=== PATIENT | female | born 1975 | race Caucasian/White ===

== ENCOUNTER → 2017-09-21 11:08 | Outpatient (CLI) | payer OTHER, SELFPAY | PROVIDERS: Family Provider Nurse Practitioner; PCP Nurse Practitioner; Visit Provider Nurse Practitioner | DX: R00.2 Palpitations (principal) | CPT/HCPCS: 93225; 93226 ==

== ENCOUNTER → 2018-03-15 11:31 | Outpatient (CLI) | payer OTHER, SELFPAY ==
--- NOTE | 2018-03-15 11:34 | BI_ITS ---
MAMMOGRAPHY - BILATERAL SCREENING REASON FOR EXAM: Female, 42 years old. Routine annual screening examination. PERTINENT HISTORY: Mother with breast cancer. Occasional clear discharge from the left breast. Occasional right axillary tenderness. TECHNIQUE: Digital bilateral breast swathi (3D mammographic acquisition) in the CC and MLO projections. 2-D mediolateral oblique (MLO) and craniocaudad (CC) views of both breasts were obtained. CAD: Full Field Digital Mammography with Computer Added Detection was performed. COMPARISON: Comparison is made with prior study dated January 25, 2017 and May 03, 2014. FINDINGS: Breast Composition: The breasts are heterogeneously dense, which may obscure small masses. There are no dominant masses or suspicious calcifications. No other significant abnormalities are identified. There has been no significant change since the prior study. BI/SCREENING MAMM (CAD), BILAT IMPRESSION: Stable bilateral screening mammogram. Yearly follow-up mammogram recommended. (A) ASSESSMENT CATEGORY: BIRADS Category 1: Negative. A letter regarding these results will be sent to the patient by the facility within 30 days. Approximately 10% of breast cancers are not detected by mammography. A normal mammogram should not delay biopsy of a clinically suspicious abnormality. [id number] Electronically Signed: Gareth Gan MD at 13:21 EST Tel [phone], Service support ,
== END ==
PROVIDERS: Family Provider Nurse Practitioner; PCP Nurse Practitioner; Referring Provider Nurse Practitioner; Visit Provider Nurse Practitioner
DX: Z12.31 Encounter for screening mammogram for malignant neoplasm of breast (principal); Z80.3 Family history of malignant neoplasm of breast
CPT/HCPCS: 77063; 77067

== ENCOUNTER → 2018-10-05 | Outpatient (CLI) | payer SELFPAY ==
--- NOTE | 2018-10-05 14:28 | RAD_ITS ---
STUDY: X-RAY CHEST REASON FOR EXAM: Female, 43 years old. Chest pain. TECHNIQUE: Frontal and lateral views of the chest. COMPARISON: None. FINDINGS: The lungs are clear and expanded. There is no demonstrated pleural abnormality. Normal size heart. Normal mediastinum and clara. Normal visualized pulmonary arteries. Normal visualized aortic arch and descending thoracic aorta. Normal visualized thoracic spine. Normal visualized ribs, clavicles, and shoulders. There is no demonstrated abnormality of the visualized soft tissue structures of the upper abdomen. RAD/Chest PA and Lateral IMPRESSION: Normal x-ray examination of the chest. Electronically Signed: Colby Haynes MD at 15:57 EDT , Service support ,
== END | disposition home or self-care (01) ==
LOC: HPRAD 14:22
PROVIDERS: Family Provider Nurse Practitioner; PCP Nurse Practitioner; Referring Provider Nurse Practitioner; Visit Provider Nurse Practitioner
DX: R07.9 Chest pain, unspecified (principal)
CPT/HCPCS: 71046

== ENCOUNTER → 2018-10-21 13:41 | Outpatient (CLI) | payer SELFPAY ==
--- NOTE | 2018-10-21 13:45 | CT_ITS ---
STUDY: CARDIAC CALCIUM SCORING - CT CHEST REASON FOR EXAM: Female, 43 years old. Family history coronary artery disease RADIATION DOSAGE (If Supplied By Facility): CTDIvol = ( 12.19 ) mGy, DLP = ( 170.66 ) mGycm TECHNIQUE: Axial non-enhanced images were acquired through the heart for the sole purpose of measuring coronary artery calcium. Individualized dose optimization techniques were used for this CT. COMPARISON: None. FINDINGS: Visualized surrounding anatomy: Normal. Left Main Coronary Artery: 0 Left Anterior Descending Artery: 0 Left Circumflex Artery: 0 Right Coronary Artery: 0 Other: Total Calcium Score: 0 CT/Limited Chest CT w/CCTA IMPRESSION: A Calcium Score of 0 places the patient in the approximate 50 percentile, based on the [facility] data calculator. Please go to: [email or web address] , for a description of the calculator. Electronically Signed: Gerardo Swain MD at 18:30 EDT , Service support ,
[2018-10-21 13:52] VITALS: BP 130/76; PULSE 60; RESP 18; O2SAT 100; BMI 26.5
--- NOTE | 2018-10-21 16:50 | CA.SCORE ---
Calcium Scoring Date of Study:: 10/21/18 Coronary Calcium Scoring: High-resolution Computed Tomographic imaging of the chest was performed on 10/21/2018 with particular attention paid to the coronary arteries. Images from the examination were analyzed for the presence and extent of coronary artery calcification , using coronary calcium quantification software. The patient tolerated the procedure well and there were no complications. The results of the coronary calcification analysis are provided below. - Findings Left Main (LM): 0 Left Anterior Descending (LAD): 0 Left Circumflex (LCX): 0 Right Coronary Artery (RCA): 0 Total Agatston Score: 0 Percentile Ranking: Percentile rankin%: 50% of people the same gender/similar age had the same/lower scores Calcium Scoring Interpretation: 0 No identifiable atherosclerotic plaque. Very low cardiovascular disease risk. <5% chance of presence coronary artery disease A Negative Examination 1-10 Minimal Plaque burden. Significant coronary artery disease very unlikely. 11-100 Mild plaque burden. Likely mild or minimal coronary atherosclerosis. 101-400 Moderate plaque burden Moderate non-obstructive coronary artery disease highly likely. Over 400 Extensive plaque burden. High likelihood of at least one significant coronary stenosis (>50% diameter) Calcium Score: 0 Negative Examination - Continue artery vascular evaluation and care as deemed appropriate
== END ==
PROVIDERS: Family Provider Nurse Practitioner; PCP Nurse Practitioner; Referring Provider Nurse Practitioner; Visit Provider Nurse Practitioner
DX: Z13.6 Encounter for screening for cardiovascular disorders (principal); Z82.49 Family history of ischemic heart disease and other diseases of the circulatory system; R07.9 Chest pain, unspecified
CPT/HCPCS: 75571; 76380

== ENCOUNTER → 2019-02-27 11:36 | Outpatient (CLI) | payer OTHER, SELFPAY ==
[2018-10-21 13:52] VITALS: BMI 26.5
--- NOTE | 2019-02-27 11:40 | RAD_ITS ---
HISTORY: FACIAL PRESSURE ADDITIONAL HISTORY: None provided. TECHNIQUE: Paranasal sinuses 3 views FINDINGS: AIR-FLUID LEVELS: None. MUCOPERIOSTEAL THICKENING: None. BONES AND SOFT TISSUES: Unremarkable. RAD/Sinuses min 3 Views IMPRESSION: No radiographic evidence of acute sinusitis. at 0445 Reported and signed by: Laura Acevedo MD Electronically Signed: Laura Acevedo MD at 4:45 EST Tel , Service support ,
== END ==
PROVIDERS: Family Provider Nurse Practitioner; PCP Nurse Practitioner; Referring Provider Nurse Practitioner; Visit Provider Nurse Practitioner
DX: J32.9 Chronic sinusitis, unspecified (principal)
CPT/HCPCS: 70220

== ENCOUNTER 2019-03-01 16:55 | Emergency (ER) | payer OTHER, SELFPAY ==
[2018-10-21 13:52] VITALS: BMI 26.5
[2019-03-01 16:56] VITALS: BP 154/95; PULSE 109; RESP 17; TEMP 36.8; O2SAT 99; BMI 26.4
--- NOTE | 2019-03-01 17:39 | ED.VIS.GEN ---
History of Present Illness Chief Complaint: General Illness Informant: Patient Onset: Days Context: Gradual Onset Timing: Continuous Narrative: Patient is a 43-year-old female with history of tobacco abuse presenting with concern for a mass in the back of her throat as well as facial pain. Patient states she noticed a bump in the back of her throat a couple weeks ago. She feels it is getting larger. She did see an ENT down in [place] who was not concerned about it. Patient thinks that the bump is getting larger. She denies any associated sore throat. She notes that she has had upper respiratory symptoms including sinus congestion for the past few weeks. She was on a 10-day course of Omnicef that she completed 4 days ago. She notes her sinusitis has improved. However she is also had increased pain in the muscles of her cheeks, swelling of her cheeks and a tremor of her mouth. Patient notes that she does clench her jaw when she is stressed. She notes that she is been very anxious because she is worried that she might have some type of throat cancer. She notes both her parents from cancer and it is their anniversary coming up. She states she has been able to sleep because she is been so worried about everything. She denies any associated fever or chills. She denies any chest pain, shortness of breath or difficulty breathing. She denies any other complaints at this time. Past Medical History - Allergies and Home Meds Allergies/Adverse Reactions: Allergies No Known Allergies Allergy (Verified 03/01/19 16:56) Primary Care Physician: Abdias Mckenzie MD [STAFF PHYSICIAN] - Pushpa Britton NP-C [Primary Care Provider] - Surgical History: noncontributory Lives: Spouse/ Significant Other Smoking Status: Never smoker Review of Systems General: Denies: Chills, Fever, Sweats Eyes: Denies: Visual changes - bilaterally, Diplopia ENT: Reports: - - Bilateral facial/cheek pain, jaw pain. Denies: Rhinorrhea, Sore throat Cardiovascular: Denies: Chest pain, Palpitations Respiratory: Denies: Dyspnea, Cough, Dyspnea on exertion Gastrointestinal: Denies: Abdominal pain, Nausea, Vomiting, Diarrhea, Melena, Hematochezia Genitourinary: Denies: Dysuria, Hematuria, Frequency Musculoskeletal: Denies: Back pain, Extremity Pain Skin: Denies: Rash, Wounds Neurological: Reports: - - Tremor of face. Denies: Headache, Weakness, Numbness Physical Exam Vital Signs/Narrative: Vital Signs Temp Pulse Resp BP Pulse Ox 03/01/19 16:56 98.3 F 109 H 17 154/95 H 99 Inital Vital Signs reviewed: Yes General: Well nourished, Well developed, No Acute Distress Head: Normocephalic, Atraumatic Eyes: Perrl, EOMI ENT: Moist mucous membranes, No rhinorrhea, TM's clear, - - Patient does have pronounced masseter muscles. She has irregular movement of the TMJ joints with opening and closing of the mouth. Normal oropharynx with slight erythema. No enlargement of the tonsils or exudate of the tonsils. There is approximately 5 cm white/yellow spot in the posterior pharynx, left aspect.. Negative for: Sinus tenderness Neck: Supple, Nontender, - - Mildly tender anterior cervical lymph nodes. Negative for: No lymphadenopathy Cardiovascular: Regular rate, Regular rhythm, No murmurs Respiratory: No distress, CTA bilaterally, Chest nontender Abdomen: Soft, Nontender, Nondistended, Normal bowel sounds Back: Nontender, Normal Inspection Extremities: Nontender, No edema Skin: Normal color, No rash Neurological: Alert, Oriented x3, Cranial nerves II-XII grossly intact, Normal Strength, Normal Sensation Psychological: Normal affect, Normal Mood, Tearful, - - Anxious Diagnostic/Tx/Re-eval Laboratory Data 03/01/19 03/01/19 18:03 18:03 WBC 7.1 RBC 4.65 Hgb 13.4 Hct 40.8 MCV 87.7 MCH 28.8 MCHC 32.8 RDW Std Deviation 39.9 RDW Coeff of Neema 12.4 Plt Count 276 MPV 9.6 Immature Gran % (Auto) 0.100 Neut % (Auto) 68.3 Lymph % (Auto) 23.5 Ocean % (Auto) 7.1 Eos % (Auto) 0.6 Baso % (Auto) 0.4 Absolute Neuts (auto) 4.9 Absolute Lymphs (auto) 1.68 Nucleated RBC % 0 Sodium 138 Potassium 3.6 Chloride 105 Carbon Dioxide 26.0 Anion Gap 7 BUN 4 L Creatinine 0.63 Estim Creat Clear Calc 93.28 Est GFR (MDRD) Af Amer 131 Est GFR (MDRD) Non-Af 109 BUN/Creatinine Ratio 6.4 L Glucose 104 Calcium 9.1 TSH 1.64 - Medical Decision Making Patient is evaluated for concern for throat cancer. She has a history of chewing tobacco and has noticed a bump/lump in the back of her throat. In addition she is having bilateral facial pain. I am not sure what to make of the bump however I did recommend follow-up with ENT. I suspect patient's facial pain and tremor are secondary to TMJ. Patient has abnormal movement with her TMJ joints and likely hypertrophy of her masseter muscles from clenching her teeth at night. She does seem to have some underlying anxiety which is probably worsening her symptoms. Patient is given a dose of Valium to help with muscle pain in her face. She does have improvement of her symptoms in the emergency room. She be discharged home with a course of NSAIDs and Valium. She has a follow-up appointment at the TMJ clinic as well as with ENT. Patient is counseled on signs and symptoms requiring return to the emergency room. Patient verbalizes agreement and understand this plan. Patient discharged home in stable and improved condition. ED Disposition - Plan for ED Patient: Disposition: Home or Assisted Living Diagnosis: TMJ arthralgia, Facial pain Instructions: Tmj Syndrome Prescriptions: Ibuprofen [Motrin] 600 mg PO Q6H PRN PRN #20 tab PRN Reason: Pain Or Fever Prescription Printed Diazepam [Valium] 5 mg PO Q8H PRN PRN 5 Days #15 tab PRN Reason: Muscle Spasm Prescription Printed Referrals: Pushpa Britton NP-C [Primary Care Provider] - Abdias Mckenzie MD [STAFF PHYSICIAN] - Additional Instructions: I suspect the pain in your face and swelling is from irritation associated TMJ. You been prescribed a pain medication, Motrin 600 mg, as well as a muscle relaxant to help with this. Keep the follow-up appointment you have with a TMJ specialist. I also given you follow-up information for Dr. Mckenzie would like a second ENT opinion for your throat.
[2019-03-01] MEDS: diazePAM 5 MG Tablet PO (17:47)
[2019-03-01 18:17] LABS: Absolute Lymphocyte Count 1.68 X10^3/uL (0.83-4.51); Absolute Neutrophil Count 4.9 X10^3/uL (2.0-7.7); Basophil# 0.03 X10^3/uL; Basophil% 0.4 % (0-1); Eosinophil# 0.04 X10^3/uL; Eosinophils% 0.6 % (0-5); Hematocrit 40.8 % (37-47); Hemoglobin 13.4 g/dL (12.0-15.0); Lymphocyte # 1.68 X10^3/ul (4.0); Lymphocyte % 23.5 % (19-41); Mean Corp Hgb Conc 32.8 g/dL (32-36); Mean Corpuscular Hgb 28.8 pg (27.0-32.0); Mean Corpuscular Volume 87.7 fL (81-99); Mean Platelet Vol. 9.6 fl (6.2-12.0); Monocyte# 0.51 X10^3/uL; Monocyte% 7.1 % (0-10); NRBC Flagged by Analyzer 0 % (0-5); Neutrophil # 4.87 X10^3/uL (2.7-7.7); Neutrophil % 68.3 % (47-70); Platelet Count 276 K/mm3 (150-450); RBC Distribution Width CV 12.4 % (11.6-14.6); RBC Distribution Width SD 39.9 fl (35.1-43.9); Red Blood Count 4.65 M/mm3 (4.2-5.4); White Blood Count 7.1 K/mm3 (4.4-11.0)
[2019-03-01 18:43] LABS: Anion Gap 7 (5-15); BUN 4 mg/dL (7-18); BUN/Creat Ratio 6.4 RATIO (10-20); Calcium,Total 9.1 mg/dL (8.5-10.1); Chloride 105 mmol/L (98-107); Creatinine, Serum 0.63 mg/dL (0.55-1.02); EST Glomerular Filtration Rate 109 mL/min (>60); Est Glom Filt Rate - Afr Amer 131 mL/min (>60); Estimated Creatinine Clearance 93.28 ml/min; Glucose 104 mg/dL (74-106); Potassium 3.6 mmol/L (3.5-5.1); Sodium Level 138 mmol/L (136-145); Thyroid Stim Hormone (TSH) 1.64 uIU/mL (0.358-3.74)
[2019-03-01 19:30] VITALS: BP 152/100; PULSE 72
== END 2019-03-01 19:31 | disposition home or self-care (01) ==
PROVIDERS: Emergency Provider Emergency Medicine; Family Provider Nurse Practitioner; PCP Nurse Practitioner
DX: M26.609 Unspecified temporomandibular joint disorder, unspecified side (principal); F41.9 Anxiety disorder, unspecified; Z87.891 Personal history of nicotine dependence
CPT/HCPCS: 80048; 84443; 85025; 99283

== ENCOUNTER 2019-03-03 18:00 | Emergency (ER) | payer OTHER, SELFPAY ==
[2019-03-03 18:02] VITALS: BP 151/98; PULSE 91; RESP 18; TEMP 36.7; O2SAT 99; BMI 26.8
[2019-03-03 20:02] VITALS: BP 146/86; PULSE 73; RESP 16; O2SAT 95
--- NOTE | 2019-03-03 20:29 | CT_ITS ---
STUDY: CT BRAIN WITHOUT CONTRAST REASON FOR EXAM: Female, 43 years old. BUCK/FACIAL SPASM RADIATION DOSAGE (If Supplied By Facility): CTDIvol = ( 44.99 ) mGy, DLP = ( 812.98 ) mGycm TECHNIQUE: Transaxial CT imaging of the brain was performed without administration of intravenous contrast material. Individualized dose optimization techniques were used for this CT. COMPARISON: No relevant priors. FINDINGS: Normal soft tissue structures. Normal calvarium. Normal size ventricles and extra-axial spaces for the patient''s age. Normal white matter tracts of the cerebral hemispheres. Normal basal ganglia and thalami. Normal brainstem. Normal cerebellum. There is no intracranial hemorrhage. There are no findings of an acute ischemic infarction. Normal visualized paranasal sinuses. CT/Brain/Head without Contrast IMPRESSION: Normal unenhanced CT scan of the brain. Electronically Signed: Marlo Ferrer MD at 21:17 EST , Service support ,
[2019-03-03] MEDS: 0.9% Normal Saline 1,000 ML 1000 ML IV (20:43)
[2019-03-03 21:15] LABS: Anion Gap 8 (5-15); BUN 5 mg/dL (7-18); BUN/Creat Ratio 7.9 RATIO (10-20); Chloride 106 mmol/L (98-107); Creatinine, Serum 0.63 mg/dL (0.55-1.02); EST Glomerular Filtration Rate 108 mL/min (>60); Est Glom Filt Rate - Afr Amer 131 mL/min (>60); Estimated Creatinine Clearance 89.19 ml/min; Glucose 94 mg/dL (74-106); Potassium 3.4 mmol/L (3.5-5.1); Sodium Level 140 mmol/L (136-145)
--- NOTE | 2019-03-03 21:45 | ED.DCSUM_ITS ---
- ER Visit Summary Date of Service: 03/03/19 Chief Complaint: Muscle spasm History of Present Illness: The patient is a 43 F presenting with facial muscle spasm. She states she has bilateral spasm in her face and twitching sensation that has been ongoing for several weeks. She was seen in the ED last night and at [facility] ED a couple of days ago. She was given a prescription for Valium last night. She states that did slightly improve her symptoms. She is scheduled to see neurology in April and ENT on Wednesday. She states she has been having trouble eating but is able to swallow liquids. She states this has also been ongoing for several weeks. She denies fever. Denies other complaints. Physical Examination: Vitals are stable. Patient is afebrile. Alert no acute distress. HEENT exam is unremarkable. Pharynx is normal. No erythema. Uvula midline. Neck is supple. No meningismus Lungs are clear and equal bilaterally. Heart is regular rate and rhythm. Abdomen is soft nontender nondistended. Extremities are unremarkable. Skin is warm and dry. No rash No focal neurologic deficit. Normal strength and sensation Remainder of exam is unremarkable. Emergency Department Course and Treatment: CT head shows no acute process. Basic metabolic panel unremarkable. Patient was given IV fluids, Zofran. She is able to tolerate p.o. in the emergency department. She is given prescription for Zofran for home. Advised to follow-up with her doctors as scheduled. Advised return to ED for worsening complaints. Disposition: Discharge home Impression: Facial twitching This note was generated with [employer] dictation software. It may contain incorrect words, spelling, and punctuation that were not noted in review of the chart prior to signing ED Disposition - Plan for ED Patient: Instructions: Muscle Spasm Prescriptions: Ondansetron [Zofran Odt] 4 mg PO Q8H PRN PRN #10 tab PRN Reason: Nausea Prescription Printed Referrals: Pushpa Britton NP-C [Primary Care Provider] -
--- NOTE | 2019-03-03 21:48 | ED.DEP ---
ED Disposition - Plan for ED Patient: Instructions: Muscle Spasm Prescriptions: Ondansetron [Zofran Odt] 4 mg PO Q8H PRN PRN #10 tablet PRN Reason: Nausea Referrals: Pushpa Britton NP-C [Primary Care Provider] -
[2019-03-03] MEDS: Ondansetron 4 MG/2 ML Vial IV (21:54)
== END 2019-03-03 22:16 | disposition home or self-care (01) ==
LOC: ED 20:09
PROVIDERS: Emergency Provider Emergency Medicine; Family Provider Nurse Practitioner; PCP Nurse Practitioner
DX: R25.3 Fasciculation (principal)
CPT/HCPCS: 70450; 80048; 96361; 96374; 99283; J7030; A4216; J2405

== ENCOUNTER → 2019-03-07 15:55 | Outpatient (CLI) | payer OTHER, SELFPAY ==
[2019-03-03 18:02] VITALS: BMI 26.8
--- NOTE | 2019-03-07 16:45 | MRI_ITS ---
STUDY: MRI BRAIN WITH AND WITHOUT CONTRAST REASON FOR EXAM: Female, 43 years old. Bilateral facial spasms x 3 weeks TECHNIQUE: Standardized multiplanar fat and water weighted pulse sequences were obtained. IV 13 Dotarem was administered for the contrast portion of the examination. COMPARISON: None. FINDINGS: Normal size of the ventricles and extra-axial spaces for the patient''s age. Normal white matter tracts of the supratentorial brain. Normal bilateral basal ganglia. Normal thalami. There is no extra-axial fluid accumulation. Normal flow voids within the major intracranial circulation suggesting patency by spin echo criteria. Normal venous enhancement. There is no enhancing intra-axial or extra-axial abnormality. Cerebellopontine angles are clear. Normal sella turcica, pituitary gland, infundibular stalk, optic chiasm and hypothalamus. Normal tectal plate and pineal gland. Normal midbrain, jazmin and medulla. Normal cerebellum. Normal basal cisterns. Normal bilateral temporal bones. Normal bilateral internal auditory canals. No demonstrated orbital abnormality, within the constraints of a routine brain study. Normal visualized paranasal sinuses. Normal calvarium and skull base. Normal visualized soft tissue structures. Normal visualized upper cervical spine. There is left mastoid effusion. MRI/Brain W/WO Contrast IMPRESSION: Normal unenhanced and enhanced MRI of the brain. Electronically Signed: Carito Padgett, at 17:22 EST Tel , Service support ,
== END ==
PROVIDERS: Family Provider Nurse Practitioner; PCP Nurse Practitioner
DX: M26.609 Unspecified temporomandibular joint disorder, unspecified side (principal); G50.1 Atypical facial pain; G51.33 Clonic hemifacial spasm, bilateral
CPT/HCPCS: 70553; A9575

== ENCOUNTER 2021-05-26 10:56 | Outpatient (CLI) | payer OTHER, SELFPAY | END 2021-05-26 23:59 | disposition home or self-care (01) | PROVIDERS: PCP Nurse Practitioner; Visit Provider Family Medicine | DX: Z12.39 Encounter for other screening for malignant neoplasm of breast (principal); Z80.3 Family history of malignant neoplasm of breast | CPT/HCPCS: 36415 ==

== ENCOUNTER → 2024-04-03 | Outpatient (CLI) | payer OTHER, SELFPAY ==
[2024-04-03 12:21] LABS: Erythrocyte Sedimentation Rate 1 mm/hr (0-30)
[2024-04-03 12:24] LABS: Absolute Lymphocyte Count 1.89 X10^3/uL (0.83-4.51); Absolute Neutrophil Count 3.8 X10^3/uL (2.0-7.7); Basophil# 0.02 X10^3/uL; Basophil% 0.3 % (0-1); Eosinophil# 0.12 X10^3/uL; Hematocrit 40.5 % (37-47); Hemoglobin 13.4 g/dL (12.0-15.0); Lymphocyte # 1.89 X10^3/ul (0.83-4.51); Lymphocyte % 30.7 % (19-41); Mean Corp Hgb Conc 33.1 g/dL (32-36); Mean Corpuscular Hgb 29.1 pg (27.0-32.0); Mean Platelet Vol. 9.6 fl (6.2-12.0); Monocyte# 0.35 X10^3/uL; Monocyte% 5.7 % (0-10); NRBC Flagged by Analyzer 0 % (0-5); Neutrophil # 3.75 X10^3/uL (2.7-7.7); Platelet Count 298 K/mm3 (150-450); RBC Distribution Width SD 42.1 fl (35.1-43.9); White Blood Count 6.2 K/mm3 (4.4-11.0)
[2024-04-03 13:07] LABS: ALB/GLOB Ratio 0.9 RATIO (0.9-2.4); AST(SGOT) 14 U/L (15-37); Alanine Aminotransfer ALT/SGPT 24 U/L (13-56); Albumin, Serum 3.6 g/dL (3.2-5.0); Alkaline Phosphatase 53 U/L (45-117); Anion Gap 7 (5-15); BUN 10 mg/dL (7-18); BUN/Creat Ratio 21.6 RATIO (10-20); CRP < 2.90 mg/L (0.0-3.0); Calcium,Total 9.4 mg/dL (8.5-10.1); Chloride 106 mmol/L (98-107); Creatinine, Serum 0.46 mg/dL (0.55-1.02); EST Glomerular Filtration Rate 152 mL/min (>60); Est Glom Filt Rate - Afr Amer 183 mL/min (>60); Glucose 68 mg/dL (74-106); Potassium 3.7 mmol/L (3.5-5.1); Protein, Total 7.6 g/dL (6.4-8.2); Rheumatoid Factor < 10.0 IU/mL (<15); Sodium Level 138 mmol/L (136-145)
[2024-04-03 13:25] LABS: Hepatitis B Surface Antibody Reactive; Hepatitis B Surface Antigen Non-Reactive (Nonreactive); Hepatitis C Antibody Non-Reactive (Nonreactive)
[2024-04-04 10:07] LABS: ANTINUCLEAR ANTIBODIES DIRECT Negative (Negative); SJOGREN'S Anti-SS-A test < 0.2 AI (0.0-0.9); SJOGREN'S Anti-SS-B test < 0.2 AI (0.0-0.9)
[2024-04-04 14:08] LABS: CCP IgG Antibodies 3 units (0-19)
== END | disposition home or self-care (01) ==
LOC: MTLAB 10:35
PROVIDERS: PCP Nurse Practitioner Family; Referring Provider Internal Medicine Rheumatology; Visit Provider Internal Medicine Rheumatology
DX: M06.4 Inflammatory polyarthropathy (principal); M79.7 Fibromyalgia
CPT/HCPCS: 36415; 80053; 85025; 85652; 86038; 86140; 86200; 86235; 86431; 86706; 86803; 87340

== ENCOUNTER → 2024-09-18 | Outpatient (CLI) | payer OTHER, SELFPAY ==
--- NOTE | 2024-09-18 11:00 | RAD_ITS ---
EXAM: XR Abdomen, 1 View CLINICAL INDICATION: SITZ DAY 3 TECHNIQUE: Frontal supine view of the abdomen/pelvis. COMPARISON: No relevant prior studies available. FINDINGS: GASTROINTESTINAL TRACT: Sitz markers are predominantly in the left aspect of the colon with a few in the pelvic cavity. No dilation. BONES/JOINTS: Unremarkable. No acute fracture. RAD/Abdomen Single View IMPRESSION: Sitz markers are predominantly in the left aspect of the colon with a few in th e pelvic cavity. Reading Location: [id number]
== END | disposition home or self-care (01) ==
LOC: RAD 10:54
PROVIDERS: PCP Nurse Practitioner Family
DX: K58.1 Irritable bowel syndrome with constipation (principal)
CPT/HCPCS: 74018

== ENCOUNTER → 2024-09-20 | Outpatient (CLI) | payer OTHER, SELFPAY ==
--- NOTE | 2024-09-20 10:20 | RAD_ITS ---
PROCEDURE: ABDOMEN SINGLE VIEW 09/20/2024 REASON FOR EXAM: SITZ DAY 5 TECHNIQUE: ABDOMEN SINGLE VIEW COMPARISON: 09/18/2024 FINDINGS: BOWEL: There are 12 retained radiopaque ring-shaped SITZ markers, unchanged in number since the prior study. On the prior exam (SITZ day 3), one marker was in the rectosigmoid colon and the remainder were scattered throughout the descending colon. On today's exam, 3 markers are seen at the descending-sigmoid colon junction and the remaining markers are clustered in the rectosigmoid colon. The marker previously seen in the rectosigmoid colon has not significantly changed in position, demonstrating only minimal distal progression. [id number] amount of stool throughout the colon. The bowel gas pattern is unremarkable. No bowel obstruction. PERITONEUM/SOFT TISSUES: No appreciable free air. Multiple calcified pelvic phleboliths again seen bilaterally. BONES: No acute osseous abnormality. RAD/Abdomen Single View IMPRESSION: 1. Persistent retention of all 12 SITZ markers at day 5, now clustered in the distal colon, including the descending-sigmoid colon junction and rectosigmoid colon. 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 2. Moderate to large stool burden. Reading Location: [id number]
== END | disposition home or self-care (01) ==
LOC: RAD 10:12
PROVIDERS: PCP Nurse Practitioner Family
DX: K58.1 Irritable bowel syndrome with constipation (principal)
CPT/HCPCS: 74018

== ENCOUNTER → 2024-09-28 | Outpatient (CLI) | payer OTHER, SELFPAY ==
--- NOTE | 2024-09-28 15:59 | CT_ITS ---
PROCEDURE: ABDOMEN/PEL W ORAL CONT ONLY 09/28/2024 REASON FOR EXAM: CONSTIPATION TECHNIQUE: ABDOMEN/PEL W ORAL CONT ONLY Noncontrast technique limits evaluation of the abdominal and pelvic viscera. Coronal and Sagittal reconstruction series were provided. One or more dose reduction techniques were used (e.g., Automated exposure control, adjustment of the mA and/or kV according to patient size, use of iterative reconstruction technique). RADIATION DOSE SUMMARY: CTDlvol: 6 mGy DLP: 278 mGycm COMPARISON: Abdominal radiographs 09/22/2024 FINDINGS: Slight lung base under aeration. Normal heart size. Small pericardial effusion. Unremarkable liver. Status post cholecystectomy. Normal pancreas, spleen, adrenal glands, kidneys. No hydronephrosis. Normal bladder. Status post hysterectomy. No retroperitoneal or pelvic adenopathy. No free air. Nonobstructed bowel. Normal appendix. Moderate stool. Interval evacuation of Sitz markers. No acute abdominal wall findings. CT/Abdomen/Pel W ORAL Cont Only IMPRESSION: Interval evacuation of all Sitz markers. Moderate stool. No acute findings otherwise noted. Reading Location: [place] [id number]
== END | disposition home or self-care (01) ==
LOC: CT 15:40
PROVIDERS: PCP Nurse Practitioner Family
DX: K58.1 Irritable bowel syndrome with constipation (principal)
CPT/HCPCS: 74176